=== PATIENT | male | born 1940 | race Caucasian/White ===

== ENCOUNTER 2023-03-18 09:48 | Emergency (ER) | payer MEDICARE ==
[2023-03-18] MEDS ORDERED: Polyethylene Glycol/Electrolytes 4,000 ML Bottle PO ONE (11:49)
== END 2023-03-18 12:12 | disposition home or self-care (01) ==
LOC: JD.ED 09:48
DX: K59.09 Other constipation (principal); I10 Essential (primary) hypertension
CPT/HCPCS: 74019; 99283; A9270

== ENCOUNTER 2023-03-25 20:34 | Emergency (ER) | payer MEDICARE ==
[2023-03-25] MEDS ORDERED: Prazosin 1 MG Cap PO ONE (21:00)
== END 2023-03-25 22:14 | disposition home or self-care (01) ==
LOC: JD.ED 20:34
DX: I10 Essential (primary) hypertension (principal)
CPT/HCPCS: 99283; A9270

== ENCOUNTER 2023-05-06 07:47 | Day surgery (SDC) | payer MEDICARE ==
[~2023-05-06 07:47] MED LIST: Lactated Ringers 1,000 ML IV SCH; Sodium Chloride 0.9% 10 ML Syringe FLUSH PRN; Sodium Chloride 0.9% 10 ML Syringe FLUSH SCH
[2023-05-06] MEDS ORDERED: fentaNYL 100 MCG/2 ML SDV ONE (08:52)
[2023-05-06] MEDS ORDERED: Propofol 200 MG/20 ML SDV ONE (08:52)
[2023-05-06] MEDS ORDERED: Lidocaine 1% 6 ML ONE (08:52)
== END 2023-05-06 10:50 | disposition home or self-care (01) ==
LOC: JD.SDS 07:47
PROVIDERS: ATTEND Surgery
DX: Z12.11 Encounter for screening for malignant neoplasm of colon (principal); D12.2 Benign neoplasm of ascending colon; K63.5 Polyp of colon; K64.8 Other hemorrhoids; I10 Essential (primary) hypertension; C61 Malignant neoplasm of prostate; E66.9 Obesity, unspecified; Z79.899 Other long term (current) drug therapy; Z68.28 Body mass index [BMI] 28.0-28.9, adult
CPT/HCPCS: 00811; 64448; J2704; J3010; J3490; J7120

== ENCOUNTER 2025-01-11 21:03 | Emergency (ER) | payer MEDICARE ==
[2025-01-11] MEDS: Acetaminophen/HYDROcodone 325-5 MG Tab PO ONE (21:47)
== END 2025-01-11 21:50 | disposition home or self-care (01) ==
LOC: JD.ED 21:03
DX: G89.18 Other acute postprocedural pain (principal); I10 Essential (primary) hypertension; E78.00 Pure hypercholesterolemia, unspecified; E66.9 Obesity, unspecified; Z68.33 Body mass index [BMI] 33.0-33.9, adult; Z79.899 Other long term (current) drug therapy
CPT/HCPCS: 99283; A9270